=== PATIENT | female | born 1995 | race Two or more races ===

== ENCOUNTER 2020-02-11 18:10 | Emergency (ER) | payer OTHER, MEDICAID ==
--- NOTE | 2020-02-11 18:27 | ER Document Report ---
ED Medical Screen (RME) - General Chief Complaint: Vag Bleeding, +preg <12wks Stated Complaint: VAGINAL BLEEDING Time Seen by Provider: 02/11/20 18:21 Mode of Arrival: Ambulatory Information source: Patient Notes: 24-year-old female presented to ED for vaginal spotting and cramping 1/5 for the last 2 hours. She states she is 2 para 1. She states her last menstrual cycle was December 02. She only past medical history is a gallbladder removal. She lives alone. She states she does not smoke drink or use any illicit drugs. I have greeted and performed a rapid initial assessment of this patient. A comprehensive ED assessment and evaluation of the patient, analysis of test results and completion of medical decision making process will be conducted by an additional ED providers. Physical Exam - Vital signs Vitals: Temp Pulse Resp BP Pulse Ox 98.5 F 61 16 106/61 98 02/11/20 18:14 02/11/20 18:14 02/11/20 18:14 02/11/20 18:14 02/11/20 18:14 Course - Vital Signs Vital signs: Temp Pulse Resp BP Pulse Ox 98.5 F 61 16 106/61 98 02/11/20 18:14 02/11/20 18:14 02/11/20 18:14 02/11/20 18:14 02/11/20 18:14
[2020-02-11 19:24] LABS: ABSOLUTE EOSINOPHILS # (AUTO) 0.2 10^3/uL (0.0-0.6); ABSOLUTE LYMPHOCYTES (AUTO) 1.7 10^3/uL (0.5-4.7); ABSOLUTE MONOCYTES (AUTO) 0.7 10^3/uL (0.1-1.4); ABSOLUTE NEUT (AUTO) 5.7 10^3/uL (1.7-8.2); BASOPHILS % (AUTO) 0.3 % (0-2); EOSINOPHILS % (AUTO) 2.1 % (0-6); HEMATOCRIT 38.8 % (36.0-47.0); HEMOGLOBIN 13.8 g/dL (12.0-15.5); LYMPHOCYTES % (AUTO) 20.9 % (13-45); MEAN CORPUSCULAR HEMOGLOBIN 31.8 pg (27.0-33.4); MEAN CORPUSCULAR HGB CONC 35.4 g/dL (32.0-36.0); MEAN CORPUSCULAR VOLUME 90 fl (80-97); MONOCYTES % (AUTO) 8.3 % (3-13); PLATELET COUNT 212 10^3/uL (150-450); RED BLOOD COUNT 4.33 10^6/uL (3.72-5.28); RED CELL DISTRIBUTION WIDTH 12.5 % (11.5-14.0); SEGMENTED NEUTROPHILS % (AUTO) 68.4 % (42-78); TOTAL CELLS COUNTED % (AUTO) 100 %; WHITE BLOOD COUNT 8.3 10^3/uL (4.0-10.5)
[2020-02-11 19:39] LABS: ALBUMIN 4.2 g/dL (3.5-5.0); ALKALINE PHOSPHATASE 60 U/L (38-126); ANION GAP 7 (5-19); ASPARTATE AMINO TRANSFERASE 24 U/L (14-36); BILIRUBIN,TOTAL 0.3 mg/dL (0.2-1.3); BLOOD UREA NITROGEN 12 mg/dL (7-20); CALCIUM 9.5 mg/dL (8.4-10.2); CARBON DIOXIDE 24 mmol/L (22-30); CHLORIDE 105 mmol/L (98-107); GLUCOSE 93 mg/dL (75-110); POTASSIUM 3.8 mmol/L (3.6-5.0)
[2020-02-11 20:43] LABS: APPEARANCE,URINE SLIGHTLY-CLOUDY; BILIRUBIN,URINE NEGATIVE (NEGATIVE); COLOR,URINE YELLOW; GLUCOSE, URINE NEGATIVE (NEGATIVE); KETONES,URINE NEGATIVE (NEGATIVE); LEUKOCYTE ESTERASE,URINE NEGATIVE (NEGATIVE); NITRITE,URINE NEGATIVE (NEGATIVE); PROTEIN,URINE NEGATIVE (NEGATIVE); URINE SPECIFIC GRAVITY 1.024; UROBILINOGEN,URINE NEGATIVE mg/dL (<2.0)
--- NOTE | 2020-02-11 21:35 | ER Document Report ---
ED General - General Chief Complaint: Vaginal Bleeding Stated Complaint: VAGINAL BLEEDING Time Seen by Provider: 02/11/20 18:21 Mode of Arrival: Ambulatory Notes: Patient is a 24-year-old female who is G2, P1 at approximately 10 weeks gestation who presents to the emergency department with a chief complaint of vaginal spotting and cramping that began earlier today. The patient reports that she has seen an [facility] [facility] outpatient, had a prior ultrasound which was normal in appearance. She states she is been taking vitamins up until very recently when she stopped because they are making her tired. She states this morning she noticed some light pelvic cramping and when she wiped from using the restroom she noticed some bright red blood on the tissue. She states that the bleeding has since stopped with subsequent wiping. She denies any further episodes of cramping. She states that she is asymptomatic here today. First was at 39 weeks, had a trial of labor with failure to progress so she was taken for an emergency and the baby's heart rate began to drop. States her oldest is nearly 5 years old and healthy without any complications. States this at this point is been without any complications. - Related Data Allergies/Adverse Reactions: No Known Allergies Allergy (Unverified 02/11/20 18:26) Past Medical History - General Information source: Patient Last Menstrual Period: december 02 - Social History Smoking Status: Never Smoker Chew tobacco use (# tins/day): No Frequency of alcohol use: None Drug Abuse: None Family History: Reviewed & Not Pertinent Patient has homicidal ideation: No Past Surgical History: Reports: Hx Section, Hx Cholecystectomy Review of Systems - Review of Systems Female Genitourinary: , Vaginal bleeding, Other - Pelvic pain -: Yes All other systems reviewed and negative Physical Exam - Vital signs Vitals: Temp Pulse Resp BP Pulse Ox 98.5 F 61 16 106/61 98 02/11/20 18:14 02/11/20 18:14 02/11/20 18:14 02/11/20 18:14 02/11/20 18:14 - General General appearance: Appears well, Alert In distress: None - Respiratory Respiratory status: No respiratory distress Chest status: Nontender Breath sounds: Normal Chest palpation: Normal - Cardiovascular Rhythm: Regular Heart sounds: Normal auscultation - Abdominal Inspection: Normal Distension: No distension Bowel sounds: Normal Tenderness: Nontender Organomegaly: No organomegaly - Back Back: No: CVA tenderness - Extremities General upper extremity: Normal inspection, Nontender, Normal color, Normal ROM, Normal temperature General lower extremity: Normal inspection, Nontender, Normal color, Normal ROM, Normal temperature, Normal weight bearing. No: Clayton's sign - Neurological Neuro grossly intact: Yes Cognition: Normal Orientation: AAOx4 - Psychological Associated symptoms: Normal affect, Normal mood - Skin Skin Temperature: Warm Skin Moisture: Dry Skin Color: Normal Course - Re-evaluation Re-evalutation: 02/11/20 22:12 Ultrasound showing viable IUP at 9 weeks 2 days heart rate 178. No identified abnormalities per radiologist. hCG is expected for this duration of . No evidence of UTI. Work-up largely unremarkable otherwise. Patient's symptoms have resolved at this point. She is stable and appropriate for discharge and outpatient follow-up. She will call her [facility] [facility] first thing in the morning to report this episode. I advised that she return here any ER immediately with any new, persistent or worsening symptoms. She verbalized understood and agreed. - Vital Signs Vital signs: Temp Pulse Resp BP Pulse Ox 98.5 F 61 16 106/61 98 02/11/20 18:27 02/11/20 18:14 02/11/20 18:14 02/11/20 18:14 02/11/20 18:14 - Laboratory Result Diagrams: 02/11/20 18:55 02/11/20 18:55 Laboratory results interpreted by me: 02/11/20 18:55 Sodium 135.9 L Beta HCG, Quant 372135.00 H Discharge - Discharge Clinical Impression: Vaginal bleeding affecting early Normal IUP (intrauterine ) on ultrasound Qualifiers: Trimester: first trimester Qualified Code(s): Z34.91 - Encounter for supervision of normal , unspecified, first trimester Condition: Stable Disposition: HOME, SELF-CARE Instructions: Bleeding During Early ([facility]) Additional Instructions: Please call your [facility] tomorrow morning to inform them about your visit here. Please return here or any ER immediately with any new, persistent or worsening symptoms.
--- NOTE | 2020-02-11 22:10 | RADIOLOGY REPORT (SQ) ---
US TRANSVAGINAL CLINICAL STATEMENT: Vaginal bleeding cramping lmp 12/03/19 COMPARISON: None FINDINGS: Uterus is anteverted and measures 10.2 x 6.7 x 8.0 cm. There is a single viable IUP of 19 weeks and two days with heart rate preserved at 178 bpm. Right ovary measures 3.1 x 1.9 x 2.5 cm. Cervix is closed, measuring 2.8 cm. No suspicious findings in the placenta. No abnormal adnexal masses. IMPRESSION: Single viable IUP of nine weeks and two days.
[2020-02-11 22:40] VITALS: BP 101/65
== END 2020-02-11 22:40 | disposition home or self-care (01) ==
LOC: ER 18:10
DX: O20.9 Hemorrhage in early pregnancy, unspecified (principal); O26.891 Other specified pregnancy related conditions, first trimester; R10.2 Pelvic and perineal pain; Z3A.09 9 weeks gestation of pregnancy
CPT/HCPCS: 36415; 76817; 80053; 81001; 84702; 85025; 86900; 86901; 87086; 99284